=== PATIENT | male | born 1975 | race Caucasian/White ===

== ENCOUNTER 2019-06-21 13:13 | Emergency (ER) | payer BC, SELFPAY ==
[2019-06-21 13:34] VITALS: BP 143/92; PULSE 66; RESP 16; TEMP 37; O2SAT 98
--- NOTE | 2019-06-21 13:35 | ED.GENADULT ---
HPI - General Adult General Chief complaint: Wound/Laceration Stated complaint: left hand laceration Time Seen by Provider: 06/21/19 13:39 Source: patient and RN notes reviewed Mode of arrival: ambulatory Limitations: no limitations History of Present Illness HPI narrative: This is a 43 years old male presented office for evaluation of left palm laceration prior to arrival. He accidentally cut his hands with a utility knife. Denies numbness or tingling in his finger. He cleaned the wound immediately and put pressure before he arrived here. He is not on any anticoagulation. Td unknown. Related Data Home Medications Medication Instructions Recorded Confirmed Zoloft 06/21/19 losartan 06/21/19 propranolol 06/21/19 Allergies Allergy/AdvReac Type Severity Reaction Status Date / Time No Known Allergies Allergy Verified 06/21/19 13:50 Review of Systems Review of Systems: Narrative: GENERAL: Denies feeling ill RESP: Denies any difficulty breathing CARDIOVASCULAR: Denies any rapid heart rate ABDOMINAL: Denies nausea, or vomiting SKIN: Reports cut to his left palm MUSCULOSKELETAL: Reports left hand pain NEURO: Denies numbness or tingling sensation in his finger. Reports feeling a little lightheaded at home secondary to blood; but not currently. [facility] Past Medical History Medical History (Updated 06/21/19 @ 14:17 by DIETER Hoff) HTN (hypertension) Comments At time of signature, I agree with nursing past medical, surgical, social and family history. There is no relevant family history pertinent to the presenting complaint. Exam Narrative: Exam Narrative: GENERAL: This is a well-nourished, well-developed patient, in no apparent distress. SKIN:left volar aspect of first metarcarpal noted laceration, gapping with high tension wound bleeding is active; but controlled with pressure. NEURO: awake, alert, and oriented to person, place and time. There were no obvious focal neurologic abnormalities. Steady gait EXTREMITIES: [place] Coma Scale Eye Opening: Spontaneous 4 Jing Coma Scale Motor: Obeys Commands 6 Jing Coma Scale Verbal: Oriented 5 Course Vital Signs Vital signs: Vital Signs Temperature 98.6 F 06/21/19 13:34 Pulse Rate 66 06/21/19 13:34 Respiratory Rate 16 06/21/19 13:34 Blood Pressure 143/92 H 06/21/19 13:34 Pulse Oximetry 98 05/13/20 13:34 Temperature 98.6 F 06/21/19 13:34 Pulse Rate 66 06/21/19 13:34 Respiratory Rate 16 06/21/19 13:34 Blood Pressure 143/92 H 06/21/19 13:34 Pulse Oximetry 98 06/21/19 13:34 Procedures Laceration Laceration 1: Date: 06/21/19 Time: 13:34 Site: upper extremity Side (If applicable): left Size (cm): 4.5 Description: linear and clean Depth: simple, single layer Local Anesthetic: lidocaine 1% Amount of anesthesia used (mL): 6 Pre-repair: wound explored, irrigated and irrigated extensively ====== Skin Level ====== Skin layer closed with: nylon Size (cm): 5-0 Number of sutures: 7 Technique: simple, interrupted ====== Subcutaneous Layer ====== Size: 5-0 ====== Muscle Layer ====== ====== Tendon Layer ====== Medical Decision Making MDM Narrative Medical decision making narrative: Patient is Urgent/Emergent. BP elevated due to current condition w/o HTN in PMH (Measure Met). Discharge instructions reviewed with patient, as well as provided in writing per nursing staff. The instructions also include specific and strict return/GO TO THE ER as well as f/u information. All questions have been answered, and the patient deny any further questions with discharge and discharge plan. Differential Diagnosis Differential Diagnosis: wound repair Vital Signs Vital Signs: Vital Signs Temperature 98.6 F 06/21/19 13:34 Pulse Rate 66 06/21/19 13:34 Respiratory Rate 16 06/21/19 13:34
[2019-06-21] MEDS: TETANUS,DIPHTHERIA,AC PERTUSSIS ADULT 0.5 ML (ADACEL) IM (13:45)
== END 2019-06-21 14:25 | disposition home or self-care (01) ==
PROVIDERS: Emergency Provider Nurse Practitioner; PCP Family Medicine
DX: S61.412A Laceration without foreign body of left hand, initial encounter (principal); I10 Essential (primary) hypertension; Z23 Encounter for immunization; W26.0XXA Contact with knife, initial encounter
CPT/HCPCS: 12002; 90471; 90715; 99212; G0463

== ENCOUNTER 2019-12-25 09:04 | Emergency (ER) | payer BC, SELFPAY ==
--- NOTE | 2019-12-25 09:09 | ED.SKABFB ---
HPI - Skin/Abscess/Foreign Bdy General Chief complaint: Skin/Abscess/Foreign Body Stated complaint: poison telly Time Seen by Provider: 12/25/19 09:22 Source: patient and RN notes reviewed Mode of arrival: ambulatory Limitations: no limitations History of Present Illness HPI narrative: 44 year old man presents with concern for poison telly. He reports he was exposed to poison telly last week. Reports he has used several OTC products with no relief. He reports the rash has continued to spread, and the area around his eyes is beginning to feel itchy. He denies breathing problems, difficulty swallowing, vision changes MD complaint: rash Related Data Home Medications Medication Instructions Recorded Confirmed dicyclomine 10 mg PO DAILY 12/25/19 12/25/19 losartan 25 mg PO DAILY 12/25/19 12/25/19 propranolol 80 mg PO DAILY 12/25/19 12/25/19 sertraline 50 mg PO DAILY 12/25/19 12/25/19 Allergies Allergy/AdvReac Type Severity Reaction Status Date / Time No Known Allergies Allergy Verified 12/25/19 09:10 Review of Systems Review of Systems: Narrative: CONSTITUTIONAL: Denies malaise, chills, sweats, or fever. EYES: Denies visual changes, redness, or discharge. ENT: Denies rhinorrhea, congestion, sinus pain, otalgia or sore throat. CARDIOVASCULAR: Denies chest pain, palpitations, or edema. RESPIRATORY: Denies cough or dyspnea. GASTROINTESTINAL: Denies abdominal pain, nausea, vomiting SKIN: reports itchy rash on both arms, itchy face MUSCULOSKELETAL: Denies myalgia. NEUROLOGIC: Denies headache. All systems reviewed & are unremarkable except as noted in HPI and below PMFSH Past Medical History Medical History (Updated 12/25/19 @ 09:32 by Caron Stanford NP) HTN (hypertension) Comments At time of signature, agree with nursing past medical, surgical, social and family history. There is no relevant family history pertinent to the presenting complaint Exam Narrative: Exam Narrative: GENERAL: Well-appearing, well-nourished, and in no acute distress. HEAD: Normocephalic, atraumatic. EYES: PERRLA, conjunctivae clear, and EOMI. ENT: Mucous membranes moist. Oropharynx without edema, erythema or lesions. NECK: Supple. No lymphadenopathy CHEST: Clear to auscultation. No respiratory distress. HEART: Regular rate and rhythm. SKIN: Warm, dry. Patches of plaque, erythema and scattered vesicles NEURO: Alert and oriented x3. PSYCH: Normal mood and affect Course Course Emergency Course: Patient is aware of diagnosis, understands and agrees to treatment plan. Anticipatory guidance given. Patient agrees to follow-up as directed and is aware of reasons to seek care at the emergency department. Portions of this record may have been created with voice recognition software Vital Signs Vital signs: Vital Signs Temperature 98.6 F 12/25/19 09:18 Pulse Rate 66 12/25/19 09:18 Respiratory Rate 16 12/25/19 09:18 Blood Pressure 150/98 H 12/25/19 09:18 Pulse Oximetry 100 12/25/19 09:18 Temperature 98.6 F 12/25/19 09:18 Pulse Rate 66 12/25/19 09:18 Respiratory Rate 16 12/25/19 09:18 Blood Pressure 150/98 H 12/25/19 09:18 Pulse Oximetry 100 12/25/19 09:18 Reviewed. MDM - Skin/Abscess/Foreign Bdy MDM Narrative Medical decision making narrative: Does not appear at this time to be erythema multiforme, bullous, SJS, TEN; no evidence at this time to suggest RMSF, endocarditis or Lyme disease; patient looks well, nontoxic and is tolerating oral intake; no neurologic signs or symptoms; no headache, photophobia or neck pain; afebrile; appropriate for initial outpatient treatment; discussed the importance of follow-up, patient agrees; question, viral exanthema, contact dermatitis, allergic dermatitis, eczema, urticaria, shingles. No soft palate or uvula edema, no tongue, lip edema or other mucosal involvement, no respiratory compromise, no stridor, no wheezing, no wheezing, no history of syncope, no hypotension, no nausea,
[2019-12-25 09:18] VITALS: BP 150/98; PULSE 66; RESP 16; TEMP 37; O2SAT 100
== END 2019-12-25 09:34 | disposition home or self-care (01) ==
PROVIDERS: Emergency Provider Nurse Practitioner
DX: L24.7 Irritant contact dermatitis due to plants, except food (principal); I10 Essential (primary) hypertension
CPT/HCPCS: 99213; G0463